=== PATIENT | female | born 1960 | race Caucasian/White ===

== ENCOUNTER 2016-10-09 05:21 | Inpatient (IN) | payer MEDICARE, OTHER ==
--- NOTE | ~2016-10-09 | EKG ---
PATIENT: REY DICKEY UNIT #: [id number] Ventricular Rate: 87 BPM Atrial Rate: 87 BPM P-R Interval: 168 ms QRS Duration: 76 ms Q-T Interval: 382 ms QTC Calculation(Bezet): 459 ms P Bruce: 70 degrees Calculated R Bruce: 44 degrees Calculated T Bruce: 48 degrees Diagnosis Line: Normal sinus rhythm Diagnosis Line: Normal ECG Diagnosis Line: No previous ECGs available Diagnosis Line: Confirmed by ISAIAH CASTRO MD ([id number]) on 10/11/2016 Diagnosis Line: 10:56:28 PM INTERPRETING MD: GLORIA HAGER
--- NOTE | ~2016-10-09 | CR63 ---
[facility] A Service of [facility] & [facility] RADIOLOGY TEXT RESULTS PATIENT: REY DICKEY LOCATION: [facility] 57- : 62 UNIT #: [id number] AGE: [address]: Soledad Webb MD SEX: F ORDER DR: [id number] [facility] [address] [place], [place] [address] [id number] I MR#: [id number] Acc #: [id number] NAME: REY DICKEY. : 1960 SEX: F STUDY DATE/TIME: 10/11/2016 8:08 UNIT: [facility] ROOM: [facility] STUDY DESCRIPTION: CR Chest 2 View Attending Physician: Soledad Webb M.D. Ordering Physician: Greta Obrien M.D. Primary Care Physician: Malorie Feldman M.D. MEDICAL IMAGING REPORT This report is preliminary unless electronic signature is present EXAM PA and lateral chest HISTORY Shortness of breath and weakness since 10/09/2016. Reported Ambien overdose. COMPARISON 10/09/2016 FINDINGS PA and lateral chest is obtained. Cardiac size is stable. Right-sided line terminates in the SVC. Lungs are expanded to the chest wall and appear clear. Dictated by... Iglesia Tsai M.D. THIS IS AN ELECTRONICALLY VERIFIED REPORT Iglesia Tsai M.D. at 10/13/2016 12:00 PM Trae TD: 10/11/2016 10:10 JOB #: [id number] MEDICAL IMAGING REPORT Page 1 of 1 COPY
--- NOTE | ~2016-10-09 | CT101 ---
[facility] A Service of [facility] RADIOLOGY TEXT RESULTS PATIENT: REY DICKEY LOCATION: [facility] 576-01 : 62 UNIT #: [id number] AGE: [address]: Soledad Webb MD SEX: F ORDER DR: [id number] [facility] [address] [place], [place] [address] [id number] I MR#: [id number] Acc #: [id number] NAME: REY DICKEY. : 1960 SEX: F STUDY DATE/TIME: 10/09/2016 7:33 UNIT: C[facility]OF ROOM: 40871 STUDY DESCRIPTION: CT Maxillofacial Area Wo Cont Attending Physician: Soledad Webb M.D. Ordering Physician: Josefina Badillo M.D. Primary Care Physician: Malorie Feldman M.D. MEDICAL IMAGING REPORT This report is preliminary unless electronic signature is present EXAM Maxillofacial CT INDICATION Found down and unresponsive today. The patient does have bruising to her face and there is concern for facial trauma. TECHNIQUE Axial CT images were obtained through the facial bones. Coronal and sagittal reformatted images were obtained. This CT exam was performed with one or more of the following radiation dose reduction techniques: automatic exposure control, adjustment of mA and/or kV according to patient size, and iterative reconstruction. FINDINGS No facial bone fractures are identified. No focal soft tissue abnormalities are seen. Paranasal sinuses appear clear. IMPRESSION Negative. Dictated by... Kassidy Enrique M.D. THIS IS AN ELECTRONICALLY VERIFIED REPORT Kassidy Enrique M.D. at 10/10/2016 4:36 PM JENNIFER/bree TD: 10/09/2016 17:36 JOB #: [id number] MEDICAL IMAGING REPORT [facility] Service of [facility] RADIOLOGY TEXT RESULTS PATIENT: REY DICKEY LOCATION: [facility] 576-01 : 62 UNIT #: [id number] AGE: [address]: Soledad Webb MD SEX: F ORDER DR: Page 1 of 1 COPY
--- NOTE | ~2016-10-09 | CR72 ---
[facility] A Service of [facility] & [facility] RADIOLOGY TEXT RESULTS PATIENT: REY DICKEY LOCATION: [place] [address] : 62 UNIT #: [id number] AGE: [address]: Soledad Webb MD SEX: F ORDER DR: [id number] [facility] [address] [place], [place] [address] [id number] I MR#: [id number] Acc #: [id number] NAME: REY DICKEY. : 1960 SEX: F STUDY DATE/TIME: 10/09/2016 13:26 UNIT: [facility] ROOM: 14253 STUDY DESCRIPTION: CR Chest Single View Portable Attending Physician: Soledad Webb M.D. Ordering Physician: Greta Obrien M.D. Primary Care Physician: Malorie Feldman M.D. MEDICAL IMAGING REPORT This report is preliminary unless electronic signature is present EXAM Single view chest INDICATIONS Extubation. Confusion. TECHNIQUE/COMPARISON Single portable AP view of the chest without comparison FINDINGS The heart and mediastinal contours are within normal limits. There is background COPD. Patient has a right subclavian central line. The endotracheal tube has been removed. IMPRESSION Interval extubation. Otherwise no change. Dictated by... Gaston [place] M.D. THIS IS AN ELECTRONICALLY VERIFIED REPORT Gaston [place] M.D. at 10/10/2016 2:13 PM [facility]/magnus TD: 10/09/2016 19:33 JOB #: [id number] MEDICAL IMAGING REPORT Page 1 of 1 COPY
--- NOTE | ~2016-10-09 | HP ---
Unit #: [id number] #: [id number] Patient: REY DICKEY [id number] [place] [id number] [place], [place] [address] [id number] I MR#: [id number] NAME: REY DICKEY ROOM: 86041 Age: 56 Sex: F Admission Date: 10/09/2016 : 1960 Attending Physician: Soledad Webb M.D. Primary Care Physician: Malorie Feldman M.D. HISTORY AND PHYSICAL CHIEF COMPLAINT Altered mental status. HISTORY OF PRESENT ILLNESS This is a 56-year-old female who was brought to the ER by her daughter for altered mental status. According to the history, the patient went to play balloon last night, came home, took her medications, and she was found at 4 o'clock in the morning in between the bed and dresser, and she had vomited. Her bottle of Ambien was empty, which she had filled just 2 days ago. She had 90 tablets, and it was kind of empty, but later on they found about 14-15 tablets under the bed. The patient does not remember that at all. The patient does not remember anything. She just remembers waking up in the hospital. The patient has had this kind of episode at least one time for sure in the past. Right now she feels that she is doing well. She does not need any treatment. She does not need to stay in the hospital. She was intubated to protect her airway in the beginning but later on, after seen by Dr. Obrien, it has been extubated. She does not complain of chest pain. Does not complain of shortness of breath. Does not complain of abdominal pain or any syncopal episode. PAST MEDICAL HISTORY 1. Hypertension. 2. COPD. 3. History of alcohol abuse. Quit in 2006. 4. Bipolar disorder. 5. Chronic pain with degenerative disk disease. 6. Hyperlipidemia. 7. Coronary artery disease. Cardiac cath was done in 2010. 8. GERD. 9. History of subdural hematoma in the past. PAST SURGICAL HISTORY 1. History of hysterectomy. 2. Right leg surgery. 3. Tonsillectomy. 4. Back surgery. 5. Morphine pump implanted and removed in 2008. 6. Laparoscopic surgeries. SOCIAL HISTORY The patient lives at home with her daughter and her grandkids. She smokes half pack per day. Has been smoking for more than 35 years. The patient has history of alcohol abuse, but she quit some time ago. She has been Unit #: [id number] #: [id number] Patient: REY DICKEY disabled since 2007. 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 ALLERGIES No known drug allergies. HOME MEDICATIONS 1. Klonopin 1 mg at bedtime. 2. Flexeril 10 mg t.i.d. 3. Lyrica 150 mg b.i.d. 4. Lisinopril 10 mg daily. 5. Lovastatin 40 mg daily. 6. Seroquel 200 mg b.i.d. REVIEW OF SYMPTOMS As per history of present illness. No history of fever, chills or rigors. No history of chest pain. No palpitations or abdominal pain. No nausea, vomiting at this time but the patient did have an episode of vomiting and possibly aspirated. No complaint of leg swelling. No complaint of syncopal episode. The patient has history of depression but no history of suicidal ideation. The patient's daughter is in the room, and the patient's is in the room, too. PHYSICAL EXAMINATION GENERAL: The patient is lying in bed. Does not seem to be in any respiratory distress. She has been extubated. The patient has been evaluated in the ER, bed 2. VITAL SIGNS: Blood pressure is 100/65, respiratory rate 12, pulse 72, temperature 98.8, oxygen saturation 100%. HEENT: Head is normocephalic. Eye movements are normal. NECK: Neck is supple. RESPIRATORY: Chest has fair air entry, decreased at the bases - more on the right side. CVS: S1, S2 positive. Regular rhythm. ABDOMEN: Obese. EXTREMITIES: Negative edema. Pulses are palpable. REGISTERED PHARMACY TECHNICIAN: The patient is awake, alert and oriented x3. No focal neurologic deficits. DIAGNOSTIC STUDIES LABORATORY: Lab workup shows WBC 8.7, hemoglobin 13.3, hematocrit 41.5, platelet count of 217. Sodium 137, potassium 3.6, chloride 97, BUN 22, creatinine 0.9. Liver enzymes are stable. Acetaminophen less than 10, salicylate less than 4, alcohol less than 5. Urine drug screen was positive for opiates and TCA. Urinalysis has been done, which shows normal. Lactic acid 1.6. CPK 128. ASSESSMENT AND PLAN The patient is being admitted to telemetry unit. Dr. Obrien has been consulted. The patient has been extubated. IV antibiotics is started for possible aspiration pneumonia. Home medications have been adjusted. Nicotine patch is being placed. Nicotine cessation counselling has been done at length. Lovenox 40 mg subcu daily is being started. Protonix is being started. Plan of care has been discussed with the and daughter at the bedside. They do verbalize understanding. Dictated by Unit #: [id number] #: [id number] Patient: REY DICKEY M.D. KN/db TD: 10/09/2016 14:46 JOB #: [id number] HISTORY AND PHYSICAL Page 1 of 1 X Soledad Webb MD X HISTORY AND PHYSICAL
--- NOTE | ~2016-10-09 | CO ---
Unit #: [id number] #: [id number] Patient: DAMARIS DESAI [id number] [facility] [address] [place], [place] [address] [id number] MR#: [id number] NAME: DAMARIS DESAI. ROOM: 576 Age: 56 Sex: F Admission Date: 10/09/2016 : 1960 Attending Physician: Soledad Webb M.D. Primary Care Physician: Malorie Feldman M.D. Consultation Date: 10/10/2016 CONSULTATION REPORT REASON FOR CONSULTATION Depression, overdose. HISTORY OF PRESENT ILLNESS Ms. Damaris Desai is a 56-year-old female seen on 10/10/16 in room 576, bed 1 at [facility]. Patient reported that she accidentally took overdose of pills. Patient reported that she was not thinking of hurting herself, denied any current suicidal or homicidal ideation. Patient was pleasant and cooperative during interview. Patient was admitted with altered mental status. Patient reported she was found with a bottle of Ambien empty. Patient reports that she fell two days ago but patient denied any suicide attempt. Patient reported getting confused and taking medication. Patient was intubated to protect her airway. Patient has a history of bipolar mood disorder, denied any previous suicide attempt. She denied any psychotic symptom and able to contract for safety at this time. PAST PSYCHIATRIC HISTORY Past psychiatric history is remarkable for history of bipolar disorder, no history of any suicide attempt but history of depression. PAST MEDICAL HISTORY History of hypertension, COPD, history of alcohol abuse quit in 2006, history of bipolar disorder, chronic pain with degenerative disc disease, hyperlipidemia, coronary artery disease, GERD, history of subdural hematoma in the past. MEDICATIONS Patentis on: 1. Klonopin 1 mg q.h.s. 2. Flexeril 10 mg t.i.d. 3. Lyrica 150 mg b.i.d. 4. Lisinopril 10 mg daily. 5. Lovastatin 40 mg daily. 6. Seroquel 200 mg b.i.d. ALLERGIES No known drug allergies. FAMILY HISTORY AND SOCIAL HISTORY Family history: Patient reported that she has a good support system from her daughter. No history of any abuse or substance abuse. Unit #: [id number] #: [id number] Patient: DAMARIS DESAI REVIEW OF SYSTEMS Complete review of systems is unremarkable. MENTAL STATUS EXAMINATION General appearance, patient dressed casually, lying comfortably in bed. Attention span and concentration fair. Speech a regular rate, coherent. Oriented in time, place and person. Mood and affect were sad, dysphoric, anxious. Thought process coherent, goal directed. Thought content, patient denied any thoughts of harming self or others or any psychotic symptoms. Recent and remote memory fair. Language, able to name objects, repeat phrases. Fund of knowledge, aware of current events. (1) intact. Mood and affect sad, dysphoric. Insight and judgment fair to poor. DIAGNOSES PSYCHIATRIC: Bipolar mood disorder, not otherwise specified, F31.89. SECONDARY: Deferred. MEDICAL: Please refer to H and P. STRESSORS: Psychosocial stressors. ASSESSMENT AND PLAN 1. Supportive psychotherapy and psychoeducation provided to patient. 2. Educated about benefits and side effects of medication and course and prognosis of illness. 3. Advised to continue with the current treatment and patient was given information about followup in outpatient program at [facility] and crisis line number [phone]. We will continue to follow. Please feel free to call if any question telephone number [phone]. Dictated by... Roverto Arnold M.D. FAM/lenin TD: 10/11/2016 22:37 JOB #: [id number] CONSULTATION REPORT Page 1 of 1 X Roverto Arnold MD X CONSULTATION REPORT
--- NOTE | ~2016-10-09 | CO ---
Unit #: [id number] #: [id number] Patient: REY DICKEY [id number] [address] [place], [place] [address] [id number] I MR#: [id number] NAME: REY DICKEY ROOM: 99463 Age: 56 Sex: F Admission Date: 10/09/2016 : 1960 Attending Physician: Soledad Webb M.D. Primary Care Physician: Malorie Feldman M.D. Consultation Date: 10/09/2016 CONSULTATION REPORT REASON FOR CONSULTATION Critical care management, respiratory failure, and drug overdose. HISTORY This patient basically is a 56-year-old female brought in with a chief complaint of altered mental status and drug overdose and was last seen around 10:00 p.m. and the patient was found unresponsives by the family and had empty pill bottles next to her and EMS was called. The patient was intubated. Currently I am seeing her at the bedside currently on ventilator, sedated intubated. REVIEW OF SYSTEMS Unobtainable. PAST MEDICAL HISTORY Chronic pain, COPD, history of alcohol use, bipolar disorder, hypertension, tobacco use, coronary artery disease, dyslipidemia. PAST SURGICAL HISTORY Hysterectomy and tonsillectomy, back surgery, ganglion cyst removal. ALLERGIES No known drug allergies. MEDICATIONS As per med rec, has been reviewed. FAMILY HISTORY COPD. SOCIAL HISTORY Smoker. Continues to smoke and drug above. PHYSICAL EXAMINATION VITAL SIGNS: Temperature 98, pulse 67, respiration 12, blood pressure 110/70. NEUROLOGIC: Sedated. CVS: S1 +S2. RESPIRATORY: Bilateral air entry. Bilateral mild rhonchi. GI: Nontender, soft. Bowel sounds positive. EXTREMITIES: No edema. SKIN: No rashes, no ulcers. LYMPHATICS: No lymphadenopathy. Unit #: [id number] #: [id number] Patient: REY DICEKY DIAGNOSTIC STUDIES Labs and imaging have been reviewed. ASSESSMENT 1. Aspiration pneumonia. 2. Drug overdose. 3. Altered mental status. 4. Acute exacerbation of COPD. PLAN The plan is to continue the patient on ventilator support and followup his report of the CT of head, GI and DVT prophylaxis, IV fluid. Check for cardiac enzymes and we will continue to monitor in the critical care unit. Total critical care time is 65 minutes in direct critical care of this patient. Please see orders for detailed plan. Thank you very much for this consultation. Dictated by... Didi Guaman TD: 10/09/2016 11:45 JOB #: [id number] CONSULTATION REPORT Page 1 of 1 X Greta Obrien MD X CONSULTATION REPORT
--- NOTE | ~2016-10-09 | CR72 ---
[facility] A Service of [facility] RADIOLOGY TEXT RESULTS PATIENT: REY DICKEY LOCATION: [facility] : 62 UNIT #: [id number] AGE: [address]: Soledad Webb MD SEX: F ORDER DR: [id number] [facility] [address] [place], [place] [address] [id number] I MR#: [id number] Acc #: [id number] NAME: REY DICKEY. : 1960 SEX: F STUDY DATE/TIME: 10/09/2016 6:42 UNIT: CEDOF ROOM: 75367 STUDY DESCRIPTION: CR Chest Single View Portable Attending Physician: Soledad Webb M.D. Ordering Physician: Josefina Badillo M.D. Primary Care Physician: Malorie Feldman M.D. MEDICAL IMAGING REPORT This report is preliminary unless electronic signature is present EXAM Portable chest radiograph. INDICATIONS Tube placement, this occurred today. FINDINGS Endotracheal tube extends into the right mainstem bronchus. I would suggest withdrawing this catheter about 2 cm. Right subclavian central venous line extends into the superior vena cava. Cardiomegaly is present. Patient does appear to have patchy infiltrate within the right upper lobe. Overall lung volumes are diminished. No pneumothorax or pleural effusion is seen. Dictated by... Kassidy Enrique M.D. THIS IS AN ELECTRONICALLY VERIFIED REPORT Kassidy Enrique M.D. at 10/10/2016 4:35 PM AFF/psc TD: 10/09/2016 17:25 JOB #: [id number] MEDICAL IMAGING REPORT Page 1 of 1 COPY
--- NOTE | ~2016-10-09 | CT71 ---
[facility] A Service [facility] RADIOLOGY TEXT RESULTS PATIENT: REY DICKEY LOCATION: [facility] : 62 UNIT #: [id number] AGE: [address]: Soledad Webb MD SEX: F ORDER DR: [id number] [facility] [address] [place] [address]. [place], [place] [address] [id number] I MR#: [id number] Acc #: [id number] NAME: REY DICKEY. : 1960 SEX: F STUDY DATE/TIME: 10/09/2016 7:31 UNIT: [facility] ROOM: 93009 STUDY DESCRIPTION: CT Head Wo Contrast Attending Physician: Soledad Webb M.D. Ordering Physician: Germain Hunt M.D. Primary Care Physician: Malorie Feldman M.D. MEDICAL IMAGING REPORT This report is preliminary unless electronic signature is present EXAM CT head without contrast INDICATIONS Unresponsiveness. The patient was found down this morning after overdosing on Ambien. TECHNIQUE Axial CT images were obtained from the vertex of the skull through skull base. No intravenous contrast was administered. This CT exam was performed with one or more of the following radiation dose reduction techniques: automatic exposure control, adjustment of mA and/or kV according to patient size, and iterative reconstruction. FINDINGS No acute intracranial hemorrhage is identified. Brain parenchyma is normal in attenuation. No focal areas of decreased attenuation seen. There is no midline shift or mass effect. The visualized paranasal sinuses and mastoid air cells appear clear. No calvarial fracture is seen. There are no focal soft tissue abnormalities. IMPRESSION Negative Dictated by... Kassidy Enrique M.D. THIS IS AN ELECTRONICALLY VERIFIED REPORT Kassidy Enrique M.D. at 10/10/2016 4:36 PM AFF/to TD: 10/09/2016 17:45 JOB #: [id number] [facility] A Service [facility] RADIOLOGY TEXT RESULTS PATIENT: REY DICKEY LOCATION: [facility] 576-01 : 62 UNIT #: [id number] AGE: [address]: Soledad Webb MD SEX: F ORDER DR: MEDICAL IMAGING REPORT Page 1 of 1 COPY
--- NOTE | ~2016-10-09 | DS ---
Unit #: [id number] #: [id number] Patient: DAMARIS DESAI [id number] [address] [address] [id number] I MR#: [id number] NAME: DAMARIS DESAI. ROOM: 576 Age: 56 Sex: F Admission Date: 10/09/2016 : 1960 Discharge Date: 10/11/2016 Attending Physician: Soledad Webb M.D. Primary Care Physician: Malorie Feldman M.D. DISCHARGE SUMMARY FINAL DIAGNOSES 1. Altered mental status secondary to drug overdose, which has resolved. 2. Chronic obstructive pulmonary disease exacerbation. 3. Aspiration pneumonia has been ruled out. If there is a question of that the patient received IV antibiotics during hospitalization, which is being discontinued as per Dr. Obrien. 4. Hypertension is stable. 5. Tobacco abuse. 6. Chronic back pain. 7. Chronic pain with degenerative disc disease. 8. Bipolar disorder. 9. Coronary artery disease. 10. Gastroesophageal reflux disease. 11. History of subdural hematoma in the past. DISCHARGE MEDICATIONS Prednisone tapering dose and continue the rest of the home medications. Please note, patient received IV tobramycin, IV Zosyn, and IV vancomycin during hospitalization. That has been discontinued as per pulmonary. [facility] Dr. Greta Obrien from pulmonary services. LAB WORKUP ON DISCHARGE Sodium 141, potassium 3.6, chloride 112, BUN 13, creatinine 0.7. Liver enzymes are stable. WBC 7.8, hemoglobin 11.3, hematocrit 34.3 and platelet count of 186. ABC on room air shows pH 7.40, pCO2 36, pO2 81.8, and oxygen saturation is 95.7%. Most recent chest x-ray, which was done on 10/11/2016 shows lungs are expanded to the chest wall and appear normal. Other radiological studied done during hospitalization was: 1. CT scan of the abdomen on 10/09/2016, which was negative. 2. CT scan of the maxillofacial area was done, which shows no facial bone fractures were identified. 3. CT scan of the cervical spine was also done on admission, which shows no acute fracture or subluxation identified. 4. Lactic acid 1.6. 5. Urinalysis showed normal. HOSPITAL COURSE Ms. Damaris Desai is a 56-year-old female who was admitted to the hospital on 10/09/2016 with altered mental status. The patient was found by her Unit #: [id number] #: [id number] Patient: DAMARIS DESAI D daughter to be lethargic and altered and a lot of Ambien pills were missing. The patient received Ambien refill from her primary care provider two days prior to this episode and her bottle seems to be empty, but later on they found 15 but the rest of them were missing. The patient was admitted to hospital and she was intubated in the ER but later on extubated the same day. There was a question of aspiration pneumonia. The patient was started on broad spectrum IV antibiotics. The patient was also started on IV Solu-Medrol for COPD exacerbation. The patient is awake, alert and oriented x3 now and he is being discharged home because she does not want to stay in the hospital and as per Dr. Obrien, the patient can be discharged and the patient will be discharged home on prednisone tapering dose. PHYSICAL EXAMINATION VITAL SIGNS ON DISCHARGE: Blood pressure is 147/79, respiratory rate 18, pulse 67, temperature 98.8. HEENT: Head is normocephalic. CHEST: Fair air entry. CVS: Regular rhythm. ABDOMEN: Obese and soft. EXTREMITIES: Negative edema. DISCHARGE INSTRUCTIONS 1. The patient is being discharged home in stable condition. 2. Followup with primary care provider in one week. 3. Followup with Dr. Obrien in two to three weeks. 4. A prescription for prednisone is being written. 5. Tobacco cessation counseling done. Patient had nicotine patch on in the hospital. Dictated by... Didi Gasca TD: 10/12/2016 09:50 JOB #: [id number] DISCHARGE SUMMARY Page 1 of 1 X Soledad Webb MD X DISCHARGE SUMMARY
--- NOTE | ~2016-10-09 | CT52 ---
[facility] A Service of [facility] [place] RADIOLOGY TEXT RESULTS PATIENT: REY DICKEY LOCATION: [facility] 576-01 : [birth year] UNIT #: [id number] AGE: [address]: Soledad Webb MD SEX: F ORDER DR: [id number] [facility] [address] [place], [place] [address] [id number] MR#: [id number] Acc #: [id number] NAME: REY DICKEY. : 1960 SEX: F STUDY DATE/TIME: 10/09/2016 7:36 UNIT: CEDOF ROOM: [id number] STUDY DESCRIPTION: CT Cervical Spine Wo Cont Attending Physician: Soledad Webb M.D. Ordering Physician: Josefina Badillo M.D. Primary Care Physician: Malorie Feldman M.D. MEDICAL IMAGING REPORT This report is preliminary unless electronic signature is present EXAM CT of the cervical spine without contrast. HISTORY This patient was found down by her family after an overdose this morning. She is unresponsive and cannot be physically evaluated for cervical spine fracture. TECHNIQUE This CT exam was performed with one or more of the following radiation dose reduction techniques: automatic exposure control, adjustment of mA and/or kV according to patient size, and iterative reconstruction. FINDINGS No acute fracture or subluxation of the cervical spine is identified. Shotty cervical lymph nodes are noted. There is no prevertebral soft tissue swelling. Thyroid gland is unremarkable. Cervical vertebral body alignment appears within normal limits. There is really minimal degenerative change. IMPRESSION No acute fracture or subluxation identified. Dictated by... Kassidy Enrique M.D. THIS IS AN ELECTRONICALLY VERIFIED REPORT Kassidy Enrique M.D. at 10/10/2016 4:36 PM AFF/tmw TD: 10/09/2016 17:32 [facility] A Service of [facility] [place] RADIOLOGY TEXT RESULTS PATIENT: REY DICKEY LOCATION: [place] [id number] : [birth year] UNIT #: [id number] AGE: [address]: Soledad Webb MD SEX: F ORDER DR: JOB #: [id number] MEDICAL IMAGING REPORT Page 1 of 1 COPY
[~2016-10-09 05:21] MED LIST: ACETAMINOPHEN PO; ADVAIR 2501 DISK W/D PO; ADVAIR 500-501 EACH IH; ADVAIR INH; ALBUTEROL17 GM INH; ALPRAZOLAM PO; ALTOPREV40 MG PO; AMBIEN PO; AMBIEN10 MG PO; AMITIZA8 MCG PO; AMITRIPTYLINE H25 MG PO; AMITRYPTYLINE PO; AMLODIPINE BESYL5 MG PO; ASPIRIN PO; ASPIRIN81 M1 PO; ASPIRIN81 M2 PO; ASPIRIN81 MG PO; BACLOFEN20 M1 PO; CALCIUM 500 + D1 TAB PO; CELEBREX PO; CELEXA PO; CHANTIX PO; COMBIVENT INH14.7 GM INH; CYMBALTA PO; DETROL LA PO; DIFLUCAN PO; DOXYCYCLINE150 MG PO; FLEXERIL PO; FLEXERIL10 MG PO; GABAPENTIN800 MG PO; HALCION PO; HYDROCODON-ACE1 EAC2 PO; INDOMETHACIN25 MG PO; KEPPRA750 MG PO; KLONOPIN1 MG PO; KLONOPIN2 MG PO; LEXAPRO PO; LIPITOR40 MG PO; LISINOPRIL10 MG PO; LODINE400 MG PO; LORTAB 10/500 T1 TAB PO; LORTAB 2.5/5001 TAB PO; LOVASTATIN20 M1 PO; LYRICA PO; MEDROL PO; MELOXICAM15 MG PO; METOPROLOL TAR25 MG PO; MEVACOR40 MG PO; MIDRIN CAPSULE1 CAP PO; MORPHINE SULFAT60 M3 PO; MULTI-VITAMIN1 TAB PO; NEURONTIN600 MG PO; NEURONTIN800 MG PO; NITROFURANTOIN100 M3 PO; NORCO 5/325 TAB1 TAB PO; OMEPRAZOLE40 M1 PO; OXYCODON-ACETA1 EAC1 PO; OXYCONTIN60 MG PO; PERCOCET 5/321 UDTAB DOB; PERCOCET 7.5-31 EACH PO; PERCOCET PO; PERCOCET10 PO; PERCOCET7.5 PO; PHENERGAN PO; PHENERGAN PR; PHENERGAN25 M1 PO; PHENERGAN25 MG PO; PREMARIN PO; PRILOSEC PO; PROVENTIL INH0.5 ML NEB; QUETIAPINE FUM200 MG PO; REGLAN10 MG PO; SAVELLA50 MG PO; SEROQUEL XR150 MG PO; SEROQUEL25 MG PO; SEROQUEL50 M1 PO; SKELAXIN PO; SYMBICORT INH; TOPAMAX; ULTRAM PO; VIT C; ZESTORETIC 20/11 TAB PO
[2016-10-09 05:54] LABS: BASOPHIL% 0.3 % (0-2.5); EOSINOPHIL# 0.1 X10e3 (0-0.7); EOSINOPHIL% 0.6 % (0.0-7.0); HEMATOCRIT 40.5 % (35.0-45.0); HEMOGLOBIN 13.3 gm/dL (12.0-16.0); LYMPHOCYTE# 1.8 X10e3 (1.0-3.5); MEAN CELL VOLUME 85.2 FL (83-96); MEAN CORPUSCULAR HEMOGLOBIN 27.9 PG (28-34); MEAN CORPUSCULAR HGB CONC 32.8 g/dL (30-36); MEAN PLATELET VOLUME 9.6 FL (6.5-11.5); MONOCYTE# 0.5 X10e3 (0-1.0); NEUTROPHIL# 6.2 X10e3 (1.5-7.1); NEUTROPHIL% 72.1 % (40-75); PLATELET COUNT 217 X10e3 (140-420); RED BLOOD COUNT 4.76 X10e (3.90-5.30); RED CELL DISTRIBUTION WIDTH 13.8 % (11.0-15.5); WHITE BLOOD COUNT 8.7 X10e3 (4.0-10.5)
[2016-10-09 05:55] LABS: DIFF IND NO
[2016-10-09 06:49] LABS: ALBUMIN SERUM 4.3 g/dL (3.5-5.0); ALKALINE PHOSPHATASE 105 U/L (32-92); ALT (SGPT) 15 U/L (10-40); AST (SGOT) 25 U/L (10-42); BILIRUBIN, DIRECT 0.1 mg/dL (0.0-0.2); BILIRUBIN,INDIRECT 0.5 mg/dL (0.0-0.9); BILIRUBIN,TOTAL 0.6 mg/dL (0.2-2.0); BLOOD UREA NITROGEN 22 mg/dL (9-23); BUN/CREATININE RATIO 24.44; CALCIUM SERUM 9.8 mg/dL (8.4-10.2); CARBON DIOXIDE 29 mmol/L (22-31); CHLORIDE 97 mmol/L (100-111); CREATININE SERUM 0.9 mg/dL (0.6-1.4); GLUCOSE FASTING 118 mg/dL (70-110); POTASSIUM 3.6 mmol/L (3.5-5.1); SALICYLATE <4.0 mg/dL; SODIUM 137 mmol/L (135-145)
[2016-10-09 06:52] LABS: ACETAMINOPHEN <10 ug/mL; ALCOHOL BLOOD <5 mg/dL ([, 0])
[2016-10-09] MEDS ORDERED: FLEXERIL PO (07:09)
[2016-10-09] MEDS ORDERED: KLONOPIN1 MG PO (07:09)
[2016-10-09] MEDS ORDERED: LYRICA PO (07:10)
[2016-10-09] MEDS ORDERED: LISINOPRIL10 MG PO (07:10)
[2016-10-09] MEDS ORDERED: MORPHINE SULFAT60 M1 PO (07:11)
[2016-10-09] MEDS ORDERED: ALTOPREV40 MG PO (07:11)
[2016-10-09] MEDS ORDERED: OMEPRAZOLE40 M1 PO (07:12)
[2016-10-09] MEDS ORDERED: AMBIEN10 MG PO (07:13)
[2016-10-09] MEDS ORDERED: OXYCODONE HCL10 MG PO (07:13)
[2016-10-09] MEDS ORDERED: AMITRYPTYLINE PO (07:13)
[2016-10-09] MEDS ORDERED: SEROQUEL XR200 MG PO (07:17)
[2016-10-09 07:46] LABS: URINE SOURCE CLEAN CATCH
[2016-10-09 07:50] LABS: URINE APPEARANCE CLEAR; URINE BILIRUBIN NEG (NEG); URINE BLOOD NEG (NEG); URINE COLOR YELLOW; URINE GLUCOSE NEG (NEG); URINE KETONE NEG (NEG); URINE LEUKOCYTE ESTERASE NEG (NEG); URINE NITRATE NEG (NEG); URINE PROTEIN NEG (NEG); URINE UROBILINOGEN 0.2 MG/DL (NEG)
[2016-10-09 08:00] LABS: AMPHETAMINE NEG (NEG); BARBITURATES NEG (NEG); BENZODIAZEPINES NEG (NEG); COCAINE NEG (NEG); MARIJUANA NEG (NEG); OPIATES POS (NEG); TRICYCLIC ANTIDEPRESSANTS POS (NEG); U METHADONE NEG (NEG)
[2016-10-09 08:13] LABS: CULTURE INDICATED? NO
[2016-10-09 08:43] LABS: POC - CKMB 1.9 ng/mL (0.0-7.9); POC - TROPONIN <0.05 ng/mL (<=0.05)
[2016-10-09 12:23] LABS: ARTERIAL BLD GAS O2 SATURATION 97.5 % (90.0-100.0); ARTERIAL BLOOD GAS CARBOXY HB 1.2 %sat (0.0-9.0); ARTERIAL BLOOD GAS HCO3 25.4 mmol/L; ARTERIAL BLOOD GAS MET HB 0.9 %sat (0.0-2.0); ARTERIAL BLOOD GAS PCO2 40.5 mmHg (35.0-45.0); ARTERIAL BLOOD GAS pH 7.406 (7.350-7.450)
[2016-10-09 12:24] LABS: ARTERIAL BLOOD GAS ALLEN TEST NORMAL; ARTERIAL BLOOD GAS ART SITE RIGHT RADIAL; ARTERIAL BLOOD GAS VENT MODE A/C; ARTERIAL DRAW? YES
[2016-10-09 13:30] LABS: ARTERIAL BLD GAS O2 SATURATION 91.3 % (90.0-100.0); ARTERIAL BLOOD GAS CARBOXY HB 1.3 %sat (0.0-9.0); ARTERIAL BLOOD GAS HCO3 26.2 mmol/L; ARTERIAL BLOOD GAS MET HB 0.9 %sat (0.0-2.0); ARTERIAL BLOOD GAS PCO2 46.3 mmHg (35.0-45.0); ARTERIAL BLOOD GAS pH 7.362 (7.350-7.450)
[2016-10-09 13:31] LABS: ARTERIAL BLOOD GAS PO2 64.4 mmHg (80.0-100); ARTERIAL DRAW? YES
[2016-10-09 13:32] LABS: ARTERIAL BLOOD GAS ALLEN TEST NORMAL; ARTERIAL BLOOD GAS ART SITE RIGHT RADIAL; ARTERIAL BLOOD GAS DELIVERY NASAL CANNULA
[2016-10-10 02:33] LABS: BASOPHIL% 0.2 % (0-2.5); EOSINOPHIL% 0.1 % (0.0-7.0); HEMATOCRIT 35.2 % (35.0-45.0); HEMOGLOBIN 11.6 gm/dL (12.0-16.0); LYMPHOCYTE# 1.4 X10e3 (1.0-3.5); LYMPHOCYTE% 17.2 % (17.0-45.0); MEAN CELL VOLUME 85.6 FL (83-96); MEAN CORPUSCULAR HEMOGLOBIN 28.1 PG (28-34); MEAN CORPUSCULAR HGB CONC 32.8 g/dL (30-36); MEAN PLATELET VOLUME 10.6 FL (6.5-11.5); MONOCYTE# 0.5 X10e3 (0-1.0); MONOCYTE% 5.7 % (3.0-12.0); NEUTROPHIL% 76.8 % (40-75); PLATELET COUNT 218 X10e3 (140-420); RED BLOOD COUNT 4.12 X10e (3.90-5.30); RED CELL DISTRIBUTION WIDTH 13.9 % (11.0-15.5); WHITE BLOOD COUNT 7.9 X10e3 (4.0-10.5)
[2016-10-10 02:40] LABS: DIFF IND NO
[2016-10-10 02:55] LABS: ALBUMIN SERUM 3.6 g/dL (3.5-5.0); BILIRUBIN,TOTAL 0.7 mg/dL (0.2-2.0); BUN/CREATININE RATIO 18.57; CALCIUM SERUM 9.2 mg/dL (8.4-10.2); CREATININE SERUM 0.7 mg/dL (0.6-1.4); GLOM FILT RATE Estimated 97.5 mL/min (>60); POTASSIUM 3.9 mmol/L (3.5-5.1); PROTEIN TOTAL SERUM 6.7 g/dL (6.0-8.3)
[2016-10-11 03:53] LABS: ARTERIAL BLD GAS O2 SATURATION 95.7 % (90.0-100.0); ARTERIAL BLOOD GAS CARBOXY HB 0.8 %sat (0.0-9.0); ARTERIAL BLOOD GAS HCO3 22.6 mmol/L; ARTERIAL BLOOD GAS MET HB 0.9 %sat (0.0-2.0); ARTERIAL BLOOD GAS PCO2 36.1 mmHg (35.0-45.0); ARTERIAL BLOOD GAS PO2 81.8 mmHg (80.0-100); ARTERIAL BLOOD GAS pH 7.405 (7.350-7.450)
[2016-10-11 03:56] LABS: ARTERIAL BLOOD GAS ALLEN TEST NORMAL; ARTERIAL BLOOD GAS ART SITE LEFT RADIAL; ARTERIAL DRAW? YES
[2016-10-11 03:57] LABS: ARTERIAL BLOOD GAS DELIVERY ROOM AIR
[2016-10-11 06:15] LABS: HEMATOCRIT 34.3 % (35.0-45.0); HEMOGLOBIN 11.3 gm/dL (12.0-16.0); MEAN CELL VOLUME 85.1 FL (83-96); MEAN CORPUSCULAR HGB CONC 32.9 g/dL (30-36); MEAN PLATELET VOLUME 10.3 FL (6.5-11.5); RED BLOOD COUNT 4.03 X10e (3.90-5.30); WHITE BLOOD COUNT 7.8 X10e3 (4.0-10.5)
[2016-10-11 06:56] LABS: ALBUMIN SERUM 3.3 g/dL (3.5-5.0); BILIRUBIN,TOTAL 0.4 mg/dL (0.2-2.0); BUN/CREATININE RATIO 18.57; CALCIUM SERUM 9.1 mg/dL (8.4-10.2); CREATININE SERUM 0.7 mg/dL (0.6-1.4); GLOM FILT RATE Estimated 97.5 mL/min (>60); POTASSIUM 3.6 mmol/L (3.5-5.1); PROTEIN TOTAL SERUM 6.3 g/dL (6.0-8.3)
[2016-10-11] MEDS ORDERED: STERAPRED5 MG/DOSE1 PO (13:58)
== END 2016-10-11 16:01 | disposition home or self-care (01) | DRG 917 ==
LOC: CED 05:21 → CEDOF 10:37 → C5C 20:29
PROVIDERS: Emergency Medicine; Internal Medicine
PROC: 0BH17EZ Insertion of Endotracheal Airway into Trachea, Via Natural or Artificial Opening (ICD-10-PCS; principal; 2016-10-09)
PROC: 5A1945Z Respiratory Ventilation, 24-96 Consecutive Hours (ICD-10-PCS; 2016-10-09)
PROC: 05H533Z Insertion of Infusion Device into Right Subclavian Vein, Percutaneous Approach (ICD-10-PCS; 2016-10-09)
DX: T42.6X1A Poisoning by other antiepileptic and sedative-hypnotic drugs, accidental (unintentional), initial encounter (principal); J69.0 Pneumonitis due to inhalation of food and vomit; F31.89 Other bipolar disorder; J44.1 Chronic obstructive pulmonary disease with (acute) exacerbation; I10 Essential (primary) hypertension; G89.29 Other chronic pain; E78.5 Hyperlipidemia, unspecified; I25.10 Atherosclerotic heart disease of native coronary artery without angina pectoris; K21.9 Gastro-esophageal reflux disease without esophagitis; Z90.710 Acquired absence of both cervix and uterus; F10.21 Alcohol dependence, in remission; F17.210 Nicotine dependence, cigarettes, uncomplicated
CPT/HCPCS: 31500; 36556; 36600; 70450; 70486; 71010; 71020; 72125; 80048; 80053; 80076; 80200; 80307; 81003; 82550; 82553; 82803; 83605; 84484; 85025; 85027; 93005; 94002; 94760; 96365; 96366; 96375; 99285; C9113; G0480; J1650; J2310; J2543; J2920; J2930; J3260; J3370